=== PATIENT | male | born 1995 | race Caucasian/White ===

== ENCOUNTER → 2018-10-16 | Outpatient (CLI) | payer OTHER ==
[~2018-10-16] MED LIST: (None)20 M1 PO; ALBU90OI INH; ALLEGRA ALLERG180 MG PO; AZIT500 PO; DOXY100 PO; LORA10ER PO; MONT10T PO; Nasonex17 GM; PSEU120ER PO
== END | disposition home or self-care (01) ==
LOC: LAB EV 12:45 → LAB SHORT 12:45
DX: R50.9 Fever, unspecified (principal)
CPT/HCPCS: 87081

== ENCOUNTER 2019-12-11 01:17 | Emergency (ER) | payer OTHER ==
[~2019-12-11] VITALS: Ht 177.8 cm; Wt 117.9 kg
[2019-12-11] MEDS ORDERED: NEOPOLHCSU RIGHTEAR (03:03)
== END 2019-12-11 03:25 | disposition home or self-care (01) ==
LOC: ER 01:17
DX: H60.91 Unspecified otitis externa, right ear (principal); Z88.5 Allergy status to narcotic agent
CPT/HCPCS: 99282; A9270-GY